=== PATIENT | female | born 1995 | race Hispanic/Latino ===

== ENCOUNTER 2018-04-15 18:03 | Emergency (ER) | payer SELFPAY ==
[2018-04-15] MEDS ORDERED: IBUPROFEN 600 MG TABLET ONE (19:19)
== END 2018-04-15 20:15 | disposition home or self-care (01) ==
LOC: EDH 18:03
DX: S83.8X1A Sprain of other specified parts of right knee, initial encounter (principal); Z88.6 Allergy status to analgesic agent; X50.0XXA Overexertion from strenuous movement or load, initial encounter; Y93.79 Activity, other specified sports and athletics; Y92.39 Other specified sports and athletic area as the place of occurrence of the external cause; Y99.8 Other external cause status
CPT/HCPCS: 73562

== ENCOUNTER 2020-10-30 23:29 | Inpatient (IN) | payer OTHER, SELFPAY ==
[~2020-10-30] VITALS: Ht 170.2 cm; Wt 121.1 kg
[2020-10-31] MEDS ORDERED: CLINDAMYCIN 600 MG/D5% WATER 50 ML IV ONE (00:34)
[2020-10-31 00:44] LABS: BASOPHILS % (AUTO) 0.2 % (0.0-5.0); EOSINOPHILS % (AUTO) 0.5 % (0.0-8.0); LYMPHOCYTES % (AUTO) 17.4 % (21.0-51.0); MEAN CORPUSCULAR HEMOGLOBIN 30.4 pg (27.0-33.0); MEAN CORPUSCULAR VOLUME 92.3 fL (79-99); MONOCYTES % (AUTO) 9.4 % (3.0-13.0); NEUTROPHILS % (AUTO) 72.2 % (40.0-77.0); PLATELET COUNT (AUTO) 265 K/uL (130-400); RED BLOOD CELL COUNT(AUTO) 4.01 MIL/uL (4.00-5.50); RED CELL DISTRIBUTION WIDTH 12.1 % (11.0-15.5); WHITE BLOOD COUNT (AUTO) 11.3 K/uL (4.8-10.8)
[2020-10-31 00:54] LABS: CREATININE 0.9 mg/dL (0.5-1.5); POTASSIUM 3.7 mmol/L (3.5-5.1)
[2020-10-31 00:59] LABS: ALBUMIN 3.6 g/dL (3.5-5.0); BILIRUBIN,TOTAL 0.5 mg/dL (0.2-1.0); TOTAL PROTEIN, SERUM 7.8 g/dL (6.0-8.3)
[2020-10-31] MEDS ORDERED: ACETAMINOPHEN 325 MG TAB PO PRN ×2 (02:45)
[2020-10-31] MEDS ORDERED: KETOROLAC TROMETHAMINE 15MG/ML IV PRN (02:45)
[2020-10-31] MEDS ORDERED: ONDANSETRON HCL 4 MG/2 ML VIAL IV PRN (02:45)
[2020-10-31] MEDS ORDERED: LACTULOSE 20 GM/30 ML UDCUP PO PRN (02:45)
[2020-10-31] MEDS ORDERED: SODIUM CHLORIDE 0.9% 1000ML 1,000 ML IV ONE (02:54)
--- NOTE | 2020-10-31 04:25 | NUR ---
ASSESSMENT ADDENDUM LEFT BREAST SWELLING ,ERYTHEMA,WITH AREA OF INDURATION MEASURING APPROXIMATELY 6CM ACROSS RIGHT AROUND SUPERIOR AND LATERAL BORDER OF AREOLA,NO VISIBLE OPENING NOTED. PER PT TENDER TO PALPATION ONLY Addendum: 10/31/20 at 0505 by MILENA SUAZO RN RN Amended: Links added.
[2020-10-31 04:30] VITALS: BP 142/88
[2020-10-31] MEDS ORDERED: SULF1TAB41 PO (04:50)
[2020-10-31] MEDS: SODIUM CHLORIDE 0.9% 1000ML 1,000 ML IV SCH ×2 (05:27→21:28)
[2020-10-31 08:00] VITALS: BP 126/87
[2020-10-31] MEDS: ENOXAPARIN SODIUM 40 MG/0.4 ML SYRINGE SQ SCH ×2 (09:00→09:04)
[2020-10-31] MEDS: FAMOTIDINE 20MG TAB 20 MG TAB PO SCH ×2 (09:03→21:26)
[2020-10-31] MEDS: CLINDAMYCIN 600 MG/D5% WATER 50 ML IV SCH ×2 (09:03→18:13)
[2020-10-31 12:00] VITALS: BP 123/75
[2020-10-31 16:00] VITALS: BP 127/78
--- NOTE | 2020-10-31 16:41 | NUR ---
INITIAL SW spoke with patient. She states she lives with her father. Emergency contact is mother, Jennifer Carrion, [phone]. Patient has no home services. DME: [facility]. Patient is able to drive and complete ADL's independently. She has no PCP. Pharmacy is [id number] located in [place]. DCP is home. Patient has no insurance or benefits. She a [place] citizen and works daytime babysitter. Patient states she just bought medical insurance from her employer but it has not started yet. Patient was provided with community resources for post hospitalization follow up. Patient was also provided with Good RX card for prescriptions and educated on [facility] $4 medication program and [facility] $5 medication program. Patient is being assisted by [employer] for financial matters. Addendum: 10/31/20 at 1645 by ОЛЬГА OLIVO SS Amended: Links added.
[2020-10-31 20:00] VITALS: BP 132/76
[2020-11-01] VITALS (13 sets, daily range): BP systolic 91–130; BP diastolic 45–71
[2020-11-01] MEDS: SODIUM CHLORIDE 0.9% 1000ML 1,000 ML IV SCH ×3 (00:16→18:45)
[2020-11-01] MEDS: CLINDAMYCIN 600 MG/D5% WATER 50 ML IV SCH ×4 (00:17→23:14)
[2020-11-01 05:23] LABS: BASOPHILS % (AUTO) 0.2 % (0.0-5.0); EOSINOPHILS % (AUTO) 2.1 % (0.0-8.0); HEMATOCRIT 36.7 % (36-48); LYMPHOCYTES % (AUTO) 22.8 % (21.0-51.0); MEAN CORPUSCULAR HGB CONC 32.7 g/dL (32.0-36.0); MEAN CORPUSCULAR VOLUME 91.8 fL (79-99); MONOCYTES % (AUTO) 10.5 % (3.0-13.0); NEUTROPHILS % (AUTO) 64.1 % (40.0-77.0); PLATELET COUNT (AUTO) 274 K/uL (130-400); RED CELL DISTRIBUTION WIDTH 12.2 % (11.0-15.5); WHITE BLOOD COUNT (AUTO) 9.7 K/uL (4.8-10.8)
[2020-11-01 06:01] LABS: CREATININE 0.8 mg/dL (0.5-1.5); POTASSIUM 3.8 mmol/L (3.5-5.1)
[2020-11-01] MEDS ORDERED: LACTATED RINGERS 1000ML 1,000 ML IV ONE (06:56)
[2020-11-01] MEDS ORDERED: MIDAZOLAM HCL 1 MG/ML 2ML VIAL ONE (07:16)
[2020-11-01] MEDS ORDERED: FENTANYL CITRATE PF 50 MCG/1 ML 2ML VIAL ONE (07:16)
[2020-11-01] MEDS ORDERED: SUCCINYLCHOLINE CHLORIDE 20 MG/ML 10 ML VIAL ONE (07:16)
[2020-11-01] MEDS ORDERED: LIDOCAINE PF 2% 5ML ABBOJECT ONE (07:16)
[2020-11-01] MEDS ORDERED: PROPOFOL 10 MG/ML 20ML VIAL IV ONE (07:16)
[2020-11-01] MEDS ORDERED: ROCURONIUM 10MG/1ML SYR 10 MG/ML ML ONE (07:16)
[2020-11-01] MEDS ORDERED: BUPIVACAINE/PF 0.25% 30ML VIAL IJ ONE (07:42)
[2020-11-01] MEDS ORDERED: LIDOCAINE HCL 1% MDV 50ML VIAL ONE (07:42)
[2020-11-01] MEDS: FAMOTIDINE 20MG TAB 20 MG TAB PO SCH ×2 (09:53→20:03)
[2020-11-01] MEDS: ENOXAPARIN SODIUM 40 MG/0.4 ML SYRINGE SQ SCH (09:55)
[2020-11-02 03:49] VITALS: BP 150/78
[2020-11-02] MEDS: SODIUM CHLORIDE 0.9% 1000ML 1,000 ML IV SCH (05:23)
[2020-11-02 08:10] VITALS: BP 118/67
[2020-11-02] MEDS: ENOXAPARIN SODIUM 40 MG/0.4 ML SYRINGE SQ SCH (08:28)
[2020-11-02] MEDS: FAMOTIDINE 20MG TAB 20 MG TAB PO SCH (08:28)
[2020-11-02] MEDS: CLINDAMYCIN 600 MG/D5% WATER 50 ML IV SCH (08:28)
[2020-11-02 11:56] VITALS: BP 123/57
[2020-11-02] MEDS ORDERED: CLIN300C10 PO (15:00)
--- NOTE | 2020-11-02 18:00 | NUR ---
DISCHARGE PATIENT GIVEN DISCHARGE INSTRUCTIONS AND EDUCATION ON FOLLOW UP APPOINTMENTS, NEW PRESCRIBED MEDICATIONS AND WOUND CARE AT HOME. PATIENT VERBALIZED UNDERSTANDING OF ALL EDUCATION GIVEN VIA TEACH BACK. PATIENT ABLE TO DO HER OWN DRESSING CHANGES AT HOME, PROVIDED WITH ENOUGH SUPPLIES. IV DISCONTINUED, CATHETER INTACT. NO DISTRESS NOTED UPON DISCHARGE,. ALL BELONGINGS TAKEN WITH.
--- NOTE | 2020-11-03 11:09 | NUR ---
TRANSITIONAL CARE - POST-DISCHARGE NOTE Spoke to patient at number on file. As per Ms Carrion, she is doing well. She states she is taking her discharge medications as ordered. Ms Carrion is aware of her follow up appointment and assures me she will follow up. She has yet to decide on a PCP, and was encouraged to find one soon so that they may keep up with her care. Ms Carrion denies any SOB, N/V/D, fever/chills, weakness or chest pain.
== END 2020-11-02 17:55 | disposition home or self-care (01) | DRG 584 ==
LOC: EDH 23:29 → EDHIP 23:30 → 3CH 10-31 03:40
PROVIDERS: ADMIT Internal Medicine; ATTEND Internal Medicine
PROC: 0H9U0ZZ Drainage of Left Breast, Open Approach (ICD-10-PCS; principal; 2020-11-01 07:39)
DX: N61.1 Abscess of the breast and nipple (principal); Z68.41 Body mass index [BMI] 40.0-44.9, adult; N63.20 Unspecified lump in the left breast, unspecified quadrant; E66.01 Morbid (severe) obesity due to excess calories; D72.829 Elevated white blood cell count, unspecified; Z88.5 Allergy status to narcotic agent
CPT/HCPCS: 36415; 76642; 80048; 80053; 84702; 85025; 87070; 87076; 87205; A6407; G0378; J0330; J1650; J2001; J2250; J2405; J2704; J3010; J3490; J7030; J7120